=== PATIENT | female | born 1960 | race Caucasian/White ===

== ENCOUNTER 2016-09-04 20:29 | Emergency (ER) | payer OTHER ==
[~2016-09-04] VITALS: Ht 172.7 cm; Wt 66.7 kg
[2016-09-04] MEDS ORDERED: BIMATOPROST5 ML TP (21:01)
[2016-09-04] MEDS ORDERED: FLUOCINONI0.05 %/30 TOP (21:01)
[2016-09-04] MEDS ORDERED: LEVOTHYROXINE0.05 MG PO (21:02)
[2016-09-04] MEDS ORDERED: XANAX1 MG PO (21:02)
[2016-09-04] MEDS ORDERED: EPINEPHRIN0.3 MG/0.1 IM (21:03)
[2016-09-04 21:13] LABS: ABSOLUTE NEUTROPHILS 2.5 thou/uL (1.4-8.2); EOSINOPHILS 3.2 % (0.0-3.0); HEMOGLOBIN 13.5 gm/dL (12.0-15.0); LYMPHOCYTES 47.1 % (24.0-44.0); MCH 32.6 pg (26.0-34.0); MCHC 34.5 g/dL (28.0-37.0); MCV 94.5 fL (80.0-100.0); MONOCYTES 7.5 % (1.0-8.0); PLATELET COUNT 219 thou/uL (150-400); POLYS 41.2 % (36.0-66.0); RBC 4.13 mil/uL (4.20-5.00); RDW 12.4 % (10.5-14.5)
[2016-09-04 21:14] LABS: MANUAL DIFF NO
[2016-09-04 21:21] LABS: CALCIUM 9.4 mg/dL (8.5-10.1); CREATININE 0.7 mg/dL (0.6-1.0); POTASSIUM 3.7 mmol/L (3.5-5.1)
[2016-09-04 21:26] LABS: ALBUMIN 4.2 g/dL (3.4-5.0); TOTAL BILIRUBIN 0.3 mg/dL (<0.1-1.0); TOTAL PROTEIN 7.3 g/dL (6.4-8.2)
[2016-09-04] MEDS ORDERED: MOBIC7.5 MG PO (21:46)
[2016-09-04 22:01] VITALS: BP 132/69
== END 2016-09-04 22:02 | disposition home or self-care (01) ==
LOC: ER 20:29
PROVIDERS: Nurse Practitioner Family
DX: S39.011A Strain of muscle, fascia and tendon of abdomen, initial encounter (principal); F10.99 Alcohol use, unspecified with unspecified alcohol-induced disorder; Z88.0 Allergy status to penicillin; Z88.8 Allergy status to other drugs, medicaments and biological substances; X50.0XXA Overexertion from strenuous movement or load, initial encounter; Y93.89 Activity, other specified; Y92.89 Other specified places as the place of occurrence of the external cause; Y99.8 Other external cause status